=== PATIENT | male | born 1960 | race Caucasian/White ===

== ENCOUNTER 2020-02-29 11:10 | Outpatient (REF) | payer OTHER, SELFPAY ==
[2020-02-29 11:43] LABS: COVID-19 Test Negative (Negative)
== END 2020-02-29 11:11 | disposition home or self-care (01) ==
LOC: HO.LAB 11:10
PROVIDERS: PCP Internal Medicine; Visit Provider Internal Medicine
DX: Z20.828 Contact with and (suspected) exposure to other viral communicable diseases (principal)
CPT/HCPCS: 87635

== ENCOUNTER 2022-05-28 07:35 | Outpatient (REF) | payer OTHER, SELFPAY ==
[2022-05-28 07:44] VITALS: BMI 41.2
[2022-05-28 07:45] VITALS: BP 140/102; PULSE 90; RESP 16; TEMP 36.6; O2SAT 97
--- NOTE | 2022-05-28 08:27 | W.PM.OPN ---
Operative Note Operative Note Date of Service: 05/28/22 Narrative: Preoperative diagnosis: Prostate Cancer Postoperative diagnosis: Prostate Cancer Procedure: 1. transrectal ultrasound measurement of prostate 2. transrectal ultrasound-guided pudendal nerve block 3. transrectal ultrasound-guided prostate biopsy 12 core Surgeon: Dr. Sin Valencia Anesthetic: Local Indications for procedure: Prostate Cancer Procedure: After informed consent was verified, the patient was brought into the procedure area and lay left-hand side down on the table. Patient identity confirmed. Perioperative antibiotics confirmed. Safety pause time out performed. ANTIONETTE performed to dilate rectal sphincter Iodine 10cc with Gel was placed per rectum Ultrasound probe was placed per rectum The prostate was measured in 3 dimensions Total volume equals 65 gm No cystic structures were noted Extensive calcifications were noted at the surgical margin The prostate was otherwise heterogenous in nature An ultrasound-guided pudendal nerve block was performed using 10 cc of 1% lidocaine. 8 cc was placed at the base and 2 cc of the apex. A 12 core biopsy was performed with 6 cores each side. Two cores were taken at the apex, mid and base. Cores were spaced between lateral and medial. He tolerated the procedure well. Was able to ambulate to bathroom after 5 minutes. Printed instructions regarding antibiotic use and common side effects such as low-grade temperature, potential infection and bleeding were given Pathology: 12 core prostate biopsy.
[2022-05-28 08:30] VITALS: BP 162/98; PULSE 78; RESP 16; O2SAT 96
== END 2022-05-28 07:36 | disposition home or self-care (01) ==
LOC: HO.MS 07:35
PROVIDERS: PCP Internal Medicine; Visit Provider Urology
PROC: (CPT 55700; principal; 2022-05-28 08:00)
DX: C61 Malignant neoplasm of prostate (principal)
CPT/HCPCS: 55700; 76942; 88305; 88344

== ENCOUNTER → 2022-06-04 11:14 | Outpatient (BNVA) | payer OTHER, SELFPAY | PROVIDERS: PCP Internal Medicine; Visit Provider Urology | DX: C61 Malignant neoplasm of prostate (principal) ==

== ENCOUNTER → 2022-06-27 15:11 | Outpatient (BNVA) | payer OTHER, SELFPAY | PROVIDERS: PCP Internal Medicine; Visit Provider Urology | DX: Z13.89 Encounter for screening for other disorder (principal) ==

== ENCOUNTER 2023-01-07 12:57 | Outpatient (AMB) | payer OTHER, SELFPAY ==
--- NOTE | 2023-01-07 12:58 | A.OFFVIS_ITS ---
Intake Intake Visit Reasons: Follow up prior of MRI Intake Note: Patient is present for Telephone Follow prior of MRI that is scheduled for today at 2 Urology Med: Bicalutamide, Finasteride Antibiotic Allergy: None Blood Thinner: None Pharmacy: [facility] Allergies No Known Allergies Allergy (Verified 01/07/23 12:59) Medication List - Last Reconciled 01/07/23 by Sin Valencia MD bicalutamide 50 mg PO DAILY 90 days finasteride 5 mg PO DAILY 90 days hydrochlorothiazide 12.5 mg PO DAILY levofloxacin 500 mg PO ONCE 3 days losartan 100 mg PO DAILY HPI HPI Comments History of Present Illness Details Mr Cooper is a very pleasant male. He is a patient of Dr Garner. He is seen for the following urologic conditions. - Prostate Cancer - rising PSA postprostatectomy Telemedicine Evaluation 15 min Consultation [employer] Zoe Video attempted Undergoing PET-CT Restaging prior to salvage radiation Recommendation 18 months hormone therapy plus external beam radiation for persistent PSA Underwent robotic prostatectomy with Dr. Mike 08/08 PSA did not fully resolve Prostate Cancer : Low-grade prostate cancer initial therapy active surveillance 2008, repeat bx 2009, 2015 - Biopsy 06/10 multicore High grade Histologic type: Adenocarcinoma, acinar type [place] score: 4+5=9 (right base lateral and medial), 4+4=8 (right apex lateral, right mid lateral and medial), 4+3=7 (right apex medial, left mid medial), 3+4=7 (left base medial, left mid lateral) Number cores positive: 10 Total number of cores: 12 % of tissue involved: 35% of all tissue examined Periprostatic fat inv.: Very close Seminal vesicle inv.: Not identified Perineural inv.: Present LVI: Not identified Two prior biopsies 2008 and 2015 with low-grade low volume disease ? Diagnosis was reached by?01/2009 needle biopsy, for elevated PSA 4.1, Gl 3+3 05/30 cores - 12/2015 MRI-fusion biopsy 07/28 core Gl 3+3, all core < 30% The [place] grade is?1st. 3+3 = 6, At biopsy 05/30 2nd , 3+3 = 6 07/28 , right base, right mid gland ? TNM Classification of Malignant Tumours (TNM)?T1c.? The D'Oliver (NCCN) risk category is?Low Risk (PSA< 10, Gl < 7, T1c).? Initial therapy included?Primary treatment, Deferred Therapy (active surveillance) Repeat biopsy 01/26 no disease detected Repeat biopsy saturation 01/01 - 07/28 core < 25% [place] 3+3 Recent labs included?a PSA (prostate-specific antigen) 2008 4.1, March 2009 2.9, October 2010 2.3, 32,012 3.2, February 2013 3.1, 2014 2.9, October 2015 6.6, October 2016 5.2, 04/05 5.4, 06/07 6.2, 07/08 Genetics - [place] Rating 3.1 - left side active surveillance boundary, 01/07 13 Recent imaging included?an MRI (magnetic resonance imaging) 01/01 with 1cm lesion PiRads 3 - 04/09 MRI PI-RADS 5 - 2.4 cm lesion right posterior base. Abutment of right [place]. - 06/[address] - avid to prostate and right single node [facility] Medical History Prostate cancer Review of Systems Const All systems reviewed & are unremarkable except as noted in HPI and below Reports no additional complaints Resp Reports no additional complaints GI Reports no additional complaints Reports as per HPI Musc Reports no additional complaints Physical Exam Telemedicine evaluation Appropriate responses Regular breathing rate and rhythm HEENT Head: Yes normal to inspection Ears: hearing grossly normal bilaterally Eyes General: appearance normal, both eyes and all related structures Neck Neck: Yes normal visual inspection Chest Chest palpation & inspection: normal inspection of the chest Resp Effort & Inspection: normal respiratory effort and able to speak in complete sentences Assessment & Plan Assessment & Plan (1) Rising PSA following treatment for malignant neoplasm of prostate: Code(s): R97.21 - Rising PSA following treatment for malignant neoplasm of prostate Plan Radiation Oncology Referral GnRH planning Completing CT-PET Orders: Referrals Radiation Oncology Referral C61 - Malignant neoplasm of prostate Patient Instructions: Imaging studies, laboratory and physical exam results were discussed and reviewed in detail. No major barriers to patient understanding were identified. An opportunity to ask questions regarding the treatment plan was provided. All questions were answered. The patient expressed understanding and agreement with the above treatment plan. The patient is aware they should contact our office by phone for worsening of their current condition or the appearance of new urologic symptoms. Compliance is encouraged with any medications and followup testing that is ordered. It is a privilege to participate in the urologic care of your patient. If you h ave any questions or concerns regarding treatment for the above conditions, or other urologic issues, please do not hesitate to contact me. The office telephone contact is [phone]. This note is constructed using voice recognition software. While every effort has been made to ensure accuracy press machine feeder errors may have been included. Yours sincerely, Dr Sin Valencia MD, [facility] - Urology Providers of Expert, Compassionate Care for the Genitourinary System Telehealth Telehealth Location of provider rendering services: practice address Location of patient: address on file Patient Identification confirmed using: Name, : Yes Telehealth method: voice only Patient verbally consented to treatment: Yes Patient verbally consented to billing insurance company: Yes Patient informed of any privacy concerns related to visit: Yes Coding Level of Care Code Tele Est Pt Level 3 (50865) Diagnoses Rising PSA following treatment for malignant neoplasm of prostate R97.21
== END 2023-01-07 13:47 | disposition home or self-care (01) ==
LOC: HO.HUSH 12:57
PROVIDERS: PCP Internal Medicine; Visit Provider Urology
DX: R97.21 Rising PSA following treatment for malignant neoplasm of prostate (principal)
CPT/HCPCS: 99213

== ENCOUNTER → 2023-01-07 12:57 | Outpatient (BNVA) | payer OTHER, SELFPAY | PROVIDERS: PCP Internal Medicine; Visit Provider Urology ==

== ENCOUNTER 2023-01-21 13:53 | Outpatient (AMB) | payer OTHER, SELFPAY ==
--- NOTE | 2023-01-21 14:05 | A.OFFVIS_ITS ---
Intake Intake Visit Reasons: GNRH injection(No PA Needed) Intake Note: Patient is present for Follow Up/Eligard Injection Urology Med: Eligard (Q6M) Antibiotic Allergy: None Blood Thinner: None Pharmacy: [facility] Allergies No Known Allergies Allergy (Verified 01/21/23 14:08) HPI HPI Comments History of Present Illness Details Mr Cooper is a very pleasant male. He is a patient of Dr Garner. He is seen for the following urologic conditions. - Prostate Cancer - rising PSA postprostatectomy Here for GnRH injection Undergoing salvage radiation, PET-CT showed no evidence of disease except at prostate base Recommendation 18 months hormone therapy plus external beam radiation for persistent PSA May benefit from total androgen blockade given high risk features Discussed approaches to total androgen blockade which aims to block testicular and adrenal pathways Traditionally this has been achieved with combination GnRH, finasteride, bicalutamide Current trials using 2nd generation anti androgens still accruing data Combination GnRH, dutasteride and bicalutamide would likely provide 70-80% benef it compared to 2nd gen anti androgens Underwent robotic prostatectomy with Dr. Mike 08/08 PSA did not fully resolve Prostate Cancer : Low-grade prostate cancer initial therapy active surveillance 2008, repeat bx 2009, 2015 - Biopsy 06/10 multicore High grade Histologic type: Adenocarcinoma, acinar type [place] score: 4+5=9 (right base lateral and medial), 4+4=8 (right apex lateral, right mid lateral and medial), 4+3=7 (right apex medial, left mid medial), 3+4=7 (left base medial, left mid lateral) Number cores positive: 10 Total number of cores: 12 % of tissue involved: 35% of all tissue examined Periprostatic fat inv.: Very close Seminal vesicle inv.: Not identified Perineural inv.: Present LVI: Not identified Two prior biopsies 2008 and 2015 with low-grade low volume disease ? Diagnosis was reached by?01/2009 needle biopsy, for elevated PSA 4.1, Gl 3+3 05/30 cores - 12/2015 MRI-fusion biopsy 07/28 core Gl 3+3, all core < 30% The [place] grade is?1st. 3+3 = 6, At biopsy 05/30 2nd , 3+3 = 6 07/28 , right base, right mid gland ? TNM Classification of Malignant Tumours (TNM)?T1c.? The D'Oliver (NCCN) risk category is?Low Risk (PSA< 10, Gl < 7, T1c).? Initial therapy included?Primary treatment, Deferred Therapy (active surveillance) Repeat biopsy 01/26 no disease detected Repeat biopsy saturation 01/01 - 07/28 core < 25% [place] 3+3 Recent labs included?a PSA (prostate-specific antigen) 2008 4.1, March 2009 2.9, October 2010 2.3, 32,012 3.2, February 2013 3.1, 2014 2.9, October 2015 6.6, October 2016 5.2, 04/05 5.4, 06/07 6.2, 07/08 Genetics - Polaris Rating 3.1 - left side active surveillance boundary, 01/07 13 Recent imaging included?an MRI (magnetic resonance imaging) 01/01 with 1cm lesion PiRads 3 - 04/09 MRI PI-RADS 5 - 2.4 cm lesion right posterior base. Abutment of right [place]AN[place]. - 06/[address] - avid to prostate and right single node [facility] Medical History Prostate cancer Review of Systems Const Denies chills and Denies fever(s) Card Reports no additional complaints and Denies syncope Resp Denies cough GI Denies abdominal pain and Denies heartburn Reports as per HPI and Denies change in libido Neuro Denies syncope Psych Denies change in libido Endo Denies change in libido Physical Exam Const General: cooperative, healthy appearing, comfortable and no acute distress Orientation/consciousness: patient oriented x3 HEENT Face and sinus: Yes normal facial exam Mouth: moist mucous membranes Neck Neck: Yes normal visual inspection, Yes full ROM and Yes trachea midline Chest Chest palpation & inspection: normal inspection of the chest Resp Effort & Inspection: normal respiratory effort, able to speak in complete sentences and no respiratory distress GI Inspection: Yes normal to inspection Back/Spine/Pelvis Cervical Spine: normal cervical lordosis Thoracic/Lumbar Spine: thoracic and lumbar spine normal to inspection Skin General skin exam: no rashes or lesions noted Neuro General: patient oriented x3, gait normal, tone normal and moves all extremities Extrem General: Yes normal to inspection and Yes capillary refill normal Office [facility] (6 month) Performing Provider: Sin Valencia MD Administered by: Kellee Masters RN on 01/21/23 14:30 Dose Route Admin Location Lot Number Expiration Date NDC [employer] 45 mg subcut right arm [id number] 05/19/24 27882-637-09 [employer]. Assessment & Plan Assessment & Plan (1) Prostate cancer: Comment: Low Volume, Low Grade 2008,2009,2016 High Volume, High Grade 2021 Code(s): C61 - Malignant neoplasm of prostate (2) Rising PSA following treatment for malignant neoplasm of prostate: Code(s): R97.21 - Rising PSA following treatment for malignant neoplasm of prostate Plan Three month follow-up PSA Orders: Orders Prostate Specific Antigen 3 Months R97.21 - Rising PSA following treatment for malignant neoplasm of prostate AMB Leuprolide Injection - Practice Supplied Today C61 - Malignant neoplasm of prostate Patient Instructions: Imaging studies, laboratory and physical exam results were discussed and reviewed in detail. No major barriers to patient understanding were identified. An opportunity to ask questions regarding the treatment plan was provided. All questions were answered. The patient expressed understanding and agreement with the above treatment plan. The patient is aware they should contact our office by phone for worsening of their current condition or the appearance of new urologic symptoms. Compliance is encouraged with any medications and followup testing that is ordered. It is a privilege to participate in the urologic care of your patient. If you have any questions or concerns regarding treatment for the above conditions, or other urologic issues, please do not hesitate to contact me. The office telephone contact is [phone]. This note is constructed using voice recognition software. While every effort has been made to ensure accuracy manager finance errors may have been included. Yours sincerely, Dr Sin Valencia MD, [facility] - Urology Providers of Expert, Compassionate Care for the Genitourinary System Coding Level of Care Code Est Pt Level 4 (76569) Diagnoses Prostate cancer C61 Rising PSA following treatment for malignant neoplasm of prostate R97.21
== END 2023-01-21 15:05 | disposition home or self-care (01) ==
PROVIDERS: PCP Internal Medicine; Visit Provider Urology
DX: C61 Malignant neoplasm of prostate (principal); R97.21 Rising PSA following treatment for malignant neoplasm of prostate
CPT/HCPCS: 99213

== ENCOUNTER → 2023-01-21 13:53 | Outpatient (BNVA) | payer OTHER, SELFPAY | PROVIDERS: PCP Internal Medicine; Visit Provider Urology | DX: C61 Malignant neoplasm of prostate (principal); R97.21 Rising PSA following treatment for malignant neoplasm of prostate | CPT/HCPCS: 96402; J9217 ==

== ENCOUNTER 2023-05-01 09:58 | Outpatient (AMB) | payer OTHER, SELFPAY ==
--- NOTE | 2023-05-01 09:58 | A.OFFVIS_ITS ---
Intake Intake Visit Reasons: 3M Radiation Follow Up Intake Note: Patient is Present for Telephone Follow Up Urology Med: Bicalutamide, Dutasteride, Eligard(Q6M) Antibiotic Allergy: None Blood Thinner: None Allergies No Known Allergies Allergy (Verified 05/01/23 10:02) Medication List - Last Reconciled 05/01/23 by Sin Valencia MD bicalutamide 50 mg PO DAILY 90 days dutasteride 0.5 mg PO DAILY 90 days hydrochlorothiazide 12.5 mg PO DAILY leuprolide acetate (6 month) (Eligard) 45 mg subcut [id number] levofloxacin 500 mg PO ONCE 3 days losartan 100 mg PO DAILY HPI HPI Comments History of Present Illness Details Mr Cooper is a very pleasant male. He is a patient of Dr Garner. He is seen for the following urologic conditions. - Prostate Cancer - rising PSA postprostatectomy Telemedicine Evaluation 15 min Consultation [employer] Zoe Video attempted Completed salvage radiation last week Has some degree of urinary urgency Controllable otherwise thinks the whole process went off fairly well. Will stop bicalutamide Continue dutasteride Review in July with labs and GnRH GnRH 01/21/23 - Salvage Radiation Underwent robotic prostatectomy with Dr. Mike 08/08 PSA did not fully resolve Prostate Cancer : Low-grade prostate cancer initial therapy active surveillance 2008, repeat bx 2009, 2015 - Biopsy 06/10 multicore High grade Histologic type: Adenocarcinoma, acinar type [place] score: 4+5=9 (right base lateral and medial), 4+4=8 (right apex lateral, right mid lateral and medial), 4+3=7 (right apex medial, left mid medial), 3+4=7 (left base medial, left mid lateral) Number cores positive: 10 Total number of cores: 12 % of tissue involved: 35% of all tissue examined Periprostatic fat inv.: Very close Seminal vesicle inv.: Not identified Perineural inv.: Present LVI: Not identified Two prior biopsies 2008 and 2015 with low-grade low volume disease ? Diagnosis was reached by?01/2009 needle biopsy, for elevated PSA 4.1, Gl 3+3 05/30 cores - 12/2015 MRI-fusion biopsy 07/28 core Gl 3+3, all core < 30% The [place] grade is?1st. 3+3 = 6, At biopsy 1/12 2nd , 3+3 = 6 07/28 , right base, right m id gland ? TNM Classification of Malignant Tumours (TNM)?T1c.? The D'Oliver (NCCN) risk category is?Low Risk (PSA< 10, Gl < 7, T1c).? Initial therapy included?Primary treatment, Deferred Therapy (active surveillance) Repeat biopsy 01/26 no disease detected Repeat biopsy saturation 01/01 - 07/28 core < 25% [place] 3+3 Recent labs included?a PSA (prostate-specific antigen) 2008 4.1, March 2009 2.9, October 2010 2.3, 32,012 3.2, February 2013 3.1, 2014 2.9, October 2015 6.6, October 2016 5.2, 04/05 5.4, 06/07 6.2, 07/08 Genetics - Polaris Ra ting 3.1 - left side active surveillance boundary, 01/07 13 Recent imaging included?an MRI (magnetic resonance imaging) 01/01 with 1cm lesion PiRads 3 - 04/09 MRI PI-RADS 5 - 2.4 cm lesion ri ght posterior base. Abutment of right KANNAN. - 06/[address] - avid to prostate and rig ht single node PFSH Medical History Prostate cancer Review of Systems Const All systems reviewed & are unremarkable except as noted in HPI and below Reports no additional complaints Resp Reports no additional complaints GI Reports no additional complaints Reports as per HPI Musc Reports no additional complaints Physical Exam Telemedicine evaluation Appropriate responses Regular breathing rate and rhythm HEENT Head: Yes normal to inspection Ears: hearing grossly normal bilaterally Eyes General: appearance normal, both eyes and all related structures Neck Neck: Yes normal visual inspection Chest Chest palpation & inspection: normal inspection of the chest Resp Effort & Inspection: normal respiratory effort and able to speak in complete sentences Assessment & Plan Assessment & Plan (1) Biochemically recurrent castration-sensitive adenocarcinoma of prostate: Code(s): C61 - Malignant neoplasm of prostate; R97.21 - Rising PSA following treatment for malignant neoplasm of prostate; Z19.1 - Hormone sensitive malignancy status Plan Three month follow-up labs and GnRH Orders: Orders Prostate Specific Antigen 3 Months C61 - Malignant neoplasm of prostate Testosterone, Total 3 Months C61 - Malignant neoplasm of prostate Patient Instructions: Imaging studies, laboratory and physical exam results were discussed and reviewed in detail. No major barriers to patient understanding were identified. An opportunity to ask questions regarding the treatment plan was provided. All questions were answered. The patient expressed understanding and agreement with the above treatment plan. The patient is aware they should contact our office by phone for worsening of their current condition or the appearance of new urologic symptoms. Compliance is encouraged with any medications and followup testing that is ordered. It is a privilege to participate in the urologic care of your patient. If you have any questions or concerns regarding treatment for the above conditions, or other urologic issues, please do not hesitate to contact me. The office telephone contact is [phone]. This note is constructed using voice recognition software. While every effort has been made to ensure accuracy retail department reset errors may have been included. Yours sincerely, Dr Sin Valencia MD, [facility] - Urology Providers of Expert, Compassionate Care for the Genitourinary System Telehealth Telehealth Location of provider rendering services: practice address Location of patient: address on file Patient Identification confirmed using: Name, : Yes Telehealth method: video Patient verbally consented to treatment: Yes Patient verbally consented to billing insurance company: Yes Patient informed of any privacy concerns related to visit: Yes Coding Level of Care Code Tele Est Pt Level 3 (79036) Diagnoses Biochemically recurrent castration-sensitive adenocarcinoma of prostate C61; R97.21; Z19.1
== END 2023-05-01 11:38 | disposition home or self-care (01) ==
LOC: HO.HUSH 09:58
PROVIDERS: PCP Internal Medicine; Visit Provider Urology
DX: C61 Malignant neoplasm of prostate (principal); R97.21 Rising PSA following treatment for malignant neoplasm of prostate; Z19.1 Hormone sensitive malignancy status
CPT/HCPCS: 99213

== ENCOUNTER → 2023-05-01 09:58 | Outpatient (BNVA) | payer OTHER, SELFPAY | PROVIDERS: PCP Internal Medicine; Visit Provider Urology ==

== ENCOUNTER 2023-07-31 10:57 | Outpatient (AMB) | payer OTHER, SELFPAY ==
--- NOTE | 2023-07-31 11:10 | A.OFFVIS_ITS ---
Intake Intake Visit Reasons: 3M GnRH/Labs(set)Portal Confirm Intake Note: Patient presents today for a follow-up on Labs/ [place] LAWS Meds- DutasterideKenyon Allergies to Antibiotic- No Known Allergies Blood Thinner- None Portfolio Management Marketing Required: No Accompanied by: Allergies No Known Allergies Allergy (Verified 07/31/23 11:13) HPI HPI Comments History of Present Illness Details Mr Cooper is a very pleasant male. He is a patient of Dr Garner. He is seen for the following urologic conditions. - Prostate Cancer - rising PSA postprostatectomy Discussed laboratory findings Emphasized need to complete series of GnRH injections Has had minor hot flashes and weight gain secondary to hormonal side effects 08/09 PSA <0.1, T 3 GnRH 01/21/23 - Salvage Radiation Underwent robotic prostatectomy with Dr. Mike 08/08 PSA did not fully resolve Prostate Cancer : Low-grade prostate cancer initial therapy active surveillance 2008, repeat bx 2009, 2015 - Biopsy 06/10 multicore High grade Histologic type: Adenocarcinoma, acinar type Monserrat score: 4+5=9 (right base lateral and medial), 4+4=8 (right apex lateral, right mid lateral and medial), 4+3=7 (right apex medial, left mid medial), 3+4=7 (left base medial, left mid lateral) Number cores positive: 10 Total number of cores: 12 % of tissue involved: 35% of all tissue examined Periprostatic fat inv.: Very close Seminal vesicle inv.: Not identified Perineural inv.: Present LVI: Not identified Two prior biopsies 2008 and 2015 with low-grade low volume disease ? Diagnosis was reached by?01/2009 needle biopsy, for elevated PSA 4.1, Gl 3+3 05/30 cores - 12/2015 MRI-fusion biopsy 07/28 core Gl 3+3, all core < 30% The [place] grade is?1st. 3+3 = 6, At biopsy 05/30 2nd , 3+3 = 6 07/28 , right base, right m id gland ? TNM Classification of Malignant Tumours (TNM)?T1c.? The D'Oliver (NCCN) risk category is?Low Risk (PSA< 10, Gl < 7, T1c).? Initial therapy included?Primary treatment, Deferred Therapy (active surveillance) Repeat biopsy 01/26 no disease detected Repeat biopsy saturation 01/01 - 07/28 core < 25% [place] 3+3 Recent labs included?a PSA (prostate-specific antigen) 2008 4.1, March 2009 2.9, October 2010 2.3, 32,012 3.2, February 2013 3.1, 2014 2.9, October 2015 6.6, October 2016 5.2, 04/05 5.4, 06/07 6.2, 07/08 Genetics - Polaris Rating 3.1 - left side active surveillance boundary, 01/07 13 Recent imaging included?an MRI (magnetic resonance imaging) 01/01 with 1cm lesion PiRads 3 - 04/09 MRI PI-RADS 5 - 2.4 cm lesion ri ght posterior base. Abutment of right KANNAN. - 06/[address] - avid to prostate and rig ht single node PFSH Medical History Prostate cancer Review of Systems Const Denies chills and Denies fever(s) Card Reports no additional complaints and Denies syncope Resp Denies cough GI Denies abdominal pain and Denies heartburn Reports as per HPI and Denies change in libido Neuro Denies syncope Psych Denies change in libido Endo Denies change in libido Physical Exam Const General: cooperative, healthy appearing, comfortable and no acute distress Orientation/consciousness: patient oriented x3 HEENT Face and sinus: Yes normal facial exam Mouth: moist mucous membranes Neck Neck: Yes normal visual inspection, Yes full ROM and Yes trachea midline Chest Chest palpation & inspection: normal inspection of the chest Resp Effort & Inspection: normal respiratory effort, able to speak in complete sentences and no respiratory distress GI Inspection: Yes normal to inspection Back/Spine/Pelvis Cervical Spine: normal cervical lordosis Thoracic/Lumbar Spine: thoracic and lumbar spine normal to inspection Skin General skin exam: no rashes or lesions noted Neuro General: patient oriented x3, gait normal, tone normal and moves all extremities Extrem General: Yes normal to inspection and Yes capillary refill normal Office Meds Eligard (6 month) 45 mg (6 month) subcutaneous syringe Performing Provider: Sin Valencia MD [facility] Administered by: Kellee Dewitt RN on 07/31/23 11:46 Dose Route Admin Location Dispensed Lot Number Expiration Date [place] Service Clerk 45 mg subcut left arm 45 mg [id number] 07/16/24 58386-085-41 [employer]. Assessment & Plan Assessment & Plan (1) Prostate cancer: Comment: Low Volume, Low Grade 2008,2009,2015 High Volume, High Grade 2021 Code(s): C61 - Malignant neoplasm of prostate (2) Biochemically recurrent castration-sensitive adenocarcinoma of prostate: Code(s): C61 - Malignant neoplasm of prostate; R97.21 - Rising PSA following treatment for malignant neoplasm of prostate; Z19.1 - Hormone sensitive malignancy status Plan Three-month follow-up lab work tele Orders: Orders Testosterone, Total 3 Months C61 - Malignant neoplasm of prostate, R97.21 - Rising PSA following treatment for malignant neoplasm of prostate, Z19.1 - Hormone sensitive malignancy status AMB Leuprolide Injection - Practice Supplied Today C61 - Malignant neoplasm of prostate Prostate Specific Antigen 3 Months C61 - Malignant neoplasm of prostate, R97.21 - Rising PSA following treatment for malignant neoplasm of prostate, Z19.1 - Hormone sensitive malignancy status Patient Instructions: Imaging studies, laboratory and physical exam results were discussed and reviewed in detail. No major barriers to patient understanding were identified. An opportunity to ask questions regarding the treatment plan was provided. All questions were answered. The patient expressed understanding and agreement with the above treatment plan. The patient is aware they should contact our office by phone for worsening of their current condition or the appearance of new urologic symptoms. Compliance is encouraged with any medications and followup testing that is ordered. It is a privilege to participate in the urologic care of your patient. If you have any questions or concerns regarding treatment for the above conditions, or other urologic issues, please do not hesitate to contact me. The office telephone contact is [phone]. This note is constructed using voice recognition software. While every effort has been made to ensure accuracy corrugator operator helper errors may have been included. Yours sincerely, Dr Sin Valencia MD, MIR[facility] - Urology Providers of Expert, Compassionate Care for the Genitourinary System Coding Level of Care Code Est Pt Level 4 (33053) Diagnoses Prostate cancer C61 Biochemically recurrent castration-sensitive adenocarcinoma of prostate C61; R97.21; Z19.1
== END 2023-07-31 11:54 | disposition home or self-care (01) ==
PROVIDERS: PCP Internal Medicine; Visit Provider Urology
DX: C61 Malignant neoplasm of prostate (principal); R97.21 Rising PSA following treatment for malignant neoplasm of prostate; Z19.1 Hormone sensitive malignancy status
CPT/HCPCS: 99214

== ENCOUNTER → 2023-07-31 10:57 | Outpatient (BNVA) | payer OTHER, SELFPAY | PROVIDERS: PCP Internal Medicine; Visit Provider Urology | DX: C61 Malignant neoplasm of prostate (principal); R97.21 Rising PSA following treatment for malignant neoplasm of prostate; Z19.1 Hormone sensitive malignancy status | CPT/HCPCS: 96402; J9217 ==

== ENCOUNTER 2023-10-31 13:28 | Outpatient (AMB) | payer OTHER, SELFPAY ==
--- NOTE | 2023-10-31 13:30 | A.OFFVIS_ITS ---
Intake Visit Reasons: 3M PSA/Testo(set) Intake Note: Patient is Present for Telephone Follow Up labs Urology Med:Dutasteride Antibiotic Allergy: None Blood Thinner:None Allergies No Known Allergies Allergy (Verified 07/31/23 11:13) Medication List - Last Reconciled 10/31/23 by Sin Valencia MD dutasteride 0.5 mg PO DAILY 90 days hydrochlorothiazide 12.5 mg PO DAILY leuprolide acetate (6 month) (Eligard) 45 mg subcut [id number] losartan 100 mg PO DAILY HPI Comments Details: Mr Cooper is a very pleasant male. He is a patient of Dr Garner. He is seen for the following urologic conditions. - Prostate Cancer - rising PSA postprostatectomy Telemedicine Evaluation 15 min Consultation DoximHItviews Zoe Video attempted Doing well Main side effect weight gain Has follow-up with PCP for low white count 11/09 <0.1 T 4 08/09 PSA <0.1, T 3 GnRH 01/21/23 - Salvage Radiation GnRH 08/[address] Mike PSA did not fully resolve Prostate Cancer : Low-grade prostate cancer initial therapy active surveillance 2008, repeat bx 2009, 2015 - Biopsy 06/10 multicore High grade Histologic type: Adenocarcinoma, acinar type Colbert score: 4+5=9 (right base lateral and medial), 4+4=8 (right apex lateral, right mid lateral and medial), 4+3=7 (right apex medial, left mid medial), 3+4=7 (left base medial, left mid lateral) Number cores positive: 10 Total number of cores: 12 % of tissue involved: 35% of all tissue examined Periprostatic fat inv.: Very close Seminal vesicle inv.: Not identified Perineural inv.: Present LVI: Not identified Two prior biopsies 2008 and 2015 with low-grade low volume disease ? Diagnosis was reached by?01/2009 needle biopsy, for elevated PSA 4.1, Gl 3+3 05/30 cores - 12/2015 MRI-fusion biopsy 07/28 core Gl 3+3, all core < 30% The Monserrat grade is?1st. 3+3 = 6, At biopsy 05/30 2nd , 3+3 = 6 07/28 , right base, right mid gland ? TNM Classification of Malignant Tumours (TNM)?T1c.? The D'Oliver (NCCN) risk category is?Low Risk (PSA< 10, Gl < 7, T1c).? Initial therapy included?Primary treatment, Deferred Therapy (active surveillance) Repeat biopsy 01/26 no disease detected Repeat biopsy saturation 01/01 - 07/28 core < 25% [place] 3+3 Recent labs included?a PSA (prostate-specific antigen) 2008 4.1, March 2009 2.9, October 2010 2.3, ,012 3.2, February 2013 3.1, 2014 2.9, October 2015 6.6, October 2016 5.2, 04/05 5.4, 06/07 6.2, 07/08 Genetics - Polaris Rating 3.1 - left side active surveillance boundary, 01/07 13 Recent imaging included?an MRI (magnetic resonance imaging) 01/01 with 1cm lesion PiRads 3 - 04/09 MRI PI-RADS 5 - 2.4 cm lesion right posterior base. Abutment of right [place]. - 06/[address] - avid to prostate and right single node [facility] Medical History Prostate cancer Review of Systems Const All systems reviewed & are unremarkable except as noted in HPI and below Reports no additional complaints Resp Reports no additional complaints GI Reports no additional complaints Reports as per HPI Musc Reports no additional complaints Physical Exam Telemedicine evaluation Appropriate responses Regular breathing rate and rhythm HEENT Head: Yes normal to inspection Ears: hearing grossly normal bilaterally Eyes General: appearance normal, both eyes and all related structures Neck Neck: Yes normal visual inspection Chest Chest palpation & inspection: normal inspection of the chest Resp Effort & Inspection: normal respiratory effort and able to speak in complete sentences Telehealth Telehealth Telehealth Platform: [facility] Location of provider rendering services: practice address Location of patient: address on file Patient Identification confirmed using: Name, : Yes Telehealth method: video Patient verbally consented to treatment: Yes Patient verbally consented to billing insurance company: Yes Patient informed of any privacy concerns related to visit: Yes Minutes spent on Phone/Video with Pt.: 15 Assessment & Plan Assessment & Plan (1) Osteopenia due to cancer therapy: Code(s): M85.80 - Other specified disorders of bone density and structure, unspecified site Category: Medical (2) Prostate cancer: Comment: Low Volume, Low Grade 2008,2009,2015 High Volume, High Grade 2021 Code(s): C61 - Malignant neoplasm of prostate Category: Medical Plan Check DEXA scan Check lab 3 months GnRH three-month Orders: Orders XR DEXA axial skeleton 3 Months M85.80 - Other specified disorders of bone density and structure, unspecified site Prostate Specific Antigen 3 Months M85.80 - Other specified disorders of bone density and structure, unspecified site Testosterone, Total 3 Months M85.80 - Other specified disorders of bone density and structure, unspecified site Patient Instructions: Imaging studies, laboratory and physical exam results were discussed and reviewed in detail. No major barriers to patient understanding were identified. An opportunity to ask questions regarding the treatment plan was provided. All questions were answered. The patient expressed understanding and agreement with the above treatment plan. The patient is aware they should contact our office by phone for worsening of their current condition or the appearance of new urologic symptoms. Compliance is encouraged with any medications and followup testing that is ordered. It is a privilege to participate in the urologic care of your patient. If you have any questions or concerns regarding treatment for the above conditions, or other urologic issues, please do not hesitate to contact me. The office telephone contact is [phone]. This note is constructed using voice recognition software. While every effort has been made to ensure accuracy insurance adjuster errors may have been included. Yours sincerely, Dr Sin Valencia MD, M[facility] - Urology Providers of Expert, Compassionate Care for the Genitourinary System Coding Level of Care Code Tele Est Pt Level 3 (69117) Diagnoses Osteopenia due to cancer therapy M85.80 Prostate cancer C61
== END 2023-10-31 14:14 | disposition home or self-care (01) ==
LOC: HO.HUSH 13:28
PROVIDERS: PCP Internal Medicine; Visit Provider Urology
DX: M85.80 Other specified disorders of bone density and structure, unspecified site (principal); C61 Malignant neoplasm of prostate
CPT/HCPCS: 99213

== ENCOUNTER → 2023-10-31 13:28 | Outpatient (BNVA) | payer OTHER, SELFPAY | PROVIDERS: PCP Internal Medicine; Visit Provider Urology ==

== ENCOUNTER 2023-11-06 08:03 | Outpatient (REF) | payer OTHER, SELFPAY ==
--- NOTE | ~2023-11-06 | MM_ITS ---
EXAMINATION: BONE DENSITOMETRY CLINICAL INDICATION: Other specified disorders of bone density and structure, unspecified site. COMPARISON: This is the patient's baseline examination. TECHNIQUE: Using a MyEnergy DXA System (software version: 13.1) manufactured by [employer], dual-energy x-ray absorptiometry was performed of the lumbar spine and left hip. The images are of good technical quality. Summary results are attached. FINDINGS: AP SPINE L1-L4 (excluding L2 and L3): The data of L1-L4 has been changed to exclude the L2 and L3 vertebral bodies, because degenerative sclerosis at these levels may cause overestimation of lumbar spine density. BMD 1.142 g/cm2, Z-score -0.7, T-score -0.5, normal. LEFT FEMUR, NECK: BMD 1.125 g/cm2, Z-score 1.0, T-score 0.4, normal. LEFT FEMUR, TOTAL: BMD 1.202 g/cm2, Z-score 0.8, T-score 0.7, normal. IDENTIFIED RISK FACTORS: Secondary osteoporosis (hypogonadism). HISTORY OF FRACTURE: None listed. MEDICATIONS: Calcium supplement and/or multivitamin. MM/XR DEXA axial skeleton IMPRESSION: 1. DIAGNOSIS: Normal bone density based on the lowest T-score value of -0.5 in the lumbar spine applying World Health Organization criteria. 2. 10-YEAR FRACTURE RISK PREDICTION, FRAX: According to the guidelines, FRAX calculation should only be performed on patients in the osteopenia bone density category.?Therefore, FRAX was not performed on this patient.? 3. Treatment Recommendations: NOF guidelines recommend consideration for treatment in postmenopausal women and men age 50 and older presenting with the following: -A hip or vertebral (clinical or morphometric) fracture. -T-score less than or equal to -2.5 at the femoral neck or spine after appropriate evaluation to exclude secondary causes. -Low bone mass at the hip or spine and a 10-year fracture probability by FRAX of greater than or equal to 3% for hip fracture or greater than or equal to 20% for major osteoporotic fracture based on the [place] adapted WHO algorithm. 4. Other Recommendations: All treatment decisions require clinical judgment and consideration of individual patient factors, including patient preferences, comorbidities, previous drug use, risk factors not captured in the FRAX model (e.g. frailty, falls, vitamin D deficiency, increased bone turnover, interval significant decline in bone density) and possible under or overestimation of fracture risk by FRAX. FUTURE SCAN RECOMMENDATION: People with diagnosed cases of osteoporosis or at high risk for fracture should have regular bone mineral density tests. For patients eligible for Medicare, routine testing is allowed once every 2 years. The testing frequency can be increased to one year for patients who have rapidly progressing disease, those who are receiving or discontinuing medical therapy to restore bone mass, or have additional risk factors.
== END 2023-11-06 08:04 | disposition home or self-care (01) ==
LOC: HO.MAMMO 08:03
PROVIDERS: PCP Internal Medicine; Visit Provider Urology
DX: Z13.820 Encounter for screening for osteoporosis (principal); M85.80 Other specified disorders of bone density and structure, unspecified site
CPT/HCPCS: 77080

== ENCOUNTER 2024-01-30 09:25 | Outpatient (AMB) | payer OTHER, SELFPAY ==
--- NOTE | 2024-01-30 09:32 | A.OFFVIS_ITS ---
Intake Visit Reasons: GnRH/labs/DEXA(pa set) Intake Note: Patient is present for GNH/LABS/DEXA Urology Medication:DUTASTERIDE Antibiotic Allergy:NONE Blood Thinner:NONE Musculoskeletal Physiotherapist Required: No Allergies No Known Allergies Allergy (Verified 01/30/24 09:34) HPI Comments Details: Mr Cooper is a very pleasant male. He is a patient of Dr Garner. He is seen for the following urologic conditions. - Prostate Cancer - rising PSA postprostatectomy Doing well Main side effect weight gain No hot flashes Has been working on RaySat from Last GnRH given today Will follow lab work 02/09 <0.1, T 3 GnRH 11/09 <0.1 T 4 08/09 PSA <0.1, T 3 GnRH 01/21/23 - Salvage Radiation GnRH for 18 months 08/[address] Mike PSA did not fully resolve Prostate Cancer : Low-grade prostate cancer initial therapy active surveillance 2008, repeat bx 2009, 2015 - Biopsy 06/10 multicore High grade Histologic type: Adenocarcinoma, acinar type Monserrat score: 4+5=9 (right base lateral and medial), 4+4=8 (right apex lateral, right mid lateral and medial), 4+3=7 (right apex medial, left mid medial), 3+4=7 (left base medial, left mid lateral) Number cores positive: 10 Total number of cores: 12 % of tissue involved: 35% of all tissue examined Periprostatic fat inv.: Very close Seminal vesicle inv.: Not identified Perineural inv.: Present LVI: Not identified Two prior biopsies 2008 and 2015 with low-grade low volume disease ? Diagnosis was reached by?01/2009 needle biopsy, for elevated PSA 4.1, Gl 3+3 05/30 cores - 12/2015 MRI-fusion biopsy 07/28 core Gl 3+3, all core < 30% The [place] grade is?1st. 3+3 = 6, At biopsy 05/30 2nd , 3+3 = 6 07/28 , right base, right mid gland ? TNM Classification of Malignant Tumours (TNM)?T1c.? The D'Oliver (NCCN) risk category is?Low Risk (PSA< 10, Gl < 7, T1c).? Initial therapy included?Primary treatment, Deferred Therapy (active surveillance) Repeat biopsy 01/26 no disease detected Repeat biopsy saturation 01/01 - 07/28 core < 25% [place] 3+3 Recent labs included?a PSA (prostate-specific antigen) 2008 4.1, March 2009 2.9, October 2010 2.3, 32,012 3.2, February 2013 3.1, 2014 2.9, October 2015 6.6, October 2016 5.2, 04/05 5.4, 06/07 6.2, 07/08 Genetics - Polaris Rating 3.1 - left side active surveillance boundary, 01/07 13 Recent imaging included?an MRI (magnetic resonance imaging) 01/01 with 1cm lesion PiRads 3 - 04/09 MRI PI-RADS 5 - 2.4 cm lesion right posterior base. Abutment of right KANNAN. - 06/[address] - avid to prostate and right single node [facility] Medical History Prostate cancer Review of Systems Const Denies chills and Denies fever(s) Card Reports no additional complaints and Denies syncope Resp Denies cough GI Denies abdominal pain and Denies heartburn Reports as per HPI and Denies change in libido Neuro Denies syncope Psych Denies change in libido Endo Denies change in libido Physical Exam Const General: cooperative, healthy appearing, comfortable and no acute distress Orientation/consciousness: patient oriented x3 HEENT Face and sinus: Yes normal facial exam Mouth: moist mucous membranes Neck Neck: Yes normal visual inspection, Yes full ROM and Yes trachea midline Chest Chest palpation & inspection: normal inspection of the chest Resp Effort & Inspection: normal respiratory effort, able to speak in complete sentences and no respiratory distress GI Inspection: Yes normal to inspection Back/Spine/Pelvis Cervical Spine: normal cervical lordosis Thoracic/Lumbar Spine: thoracic and lumbar spine normal to inspection Skin General skin exam: no rashes or lesions noted Neuro General: patient oriented x3, gait normal, tone normal and moves all extremities Extrem General: Yes normal to inspection and Yes capillary refill normal Office Procedures Post Void Residual Post Residual Void Post Void Residual (PVR): 0 02864-Upef Void Residual by ultrasound Office Meds Eligard (6 month) 45 mg (6 month) subcutaneous syringe Performing Provider: Sin Valencia MD Performing Location: [facility] [place] [facility] Administered by: Balaji Hernandez LPN on 01/30/24 10:24 Dose Route Admin Location Dispensed Lot Number Expiration Date NDC Offbearer Sewer Pipe 45 mg subcut right arm 45 mg [id number] 11/16/24 70542-086-73 [employer]. Results AMB Urinalysis, Automated UA Leukoctes Cancelled Frantz/uL Last Edit by ALMA Kaur on 01/30/24 09:40 UA Leukoctes previously reported as 0 Cathy Downs 01/30/24 09:40 UA Nitrite Cancelled Last Edit by ALMA Kaur on 01/30/24 09:40 UA Nitrite previously reported as Negative Cathy Downs 01/30/24 09:40 UA Urobilinogen Cancelled mg/dL Last Edit by ALMA Kaur on 4 09:40 UA Urobilinogen previously reported as 0.2 Cathy Downs 01/30/24 09:40 UA Protein Cancelled mg/dL Last Edit by ALMA Kaur on 01/30/24 09: 40 UA Protein previously reported as 30 Cathy Downs 01/30/24 09:40 UA pH Cancelled Last Edit by ALMA Kaur on 01/30/24 09:40 UA pH previously reported as 6.0 Cathy Downs 01/30/24 09:40 UA Blood Cancelled Van/uL Last Edit by ALMA Kaur on 01/30/24 09:4 0 UA Blood previously reported as 0 Cathy Downs 01/30/24 09:40 UA Specific [place] Cancelled Last Edit by ALMA Kaur on 01/30/24 09:40 UA Specific [place] previously reported as 1.020 Cathy Downs 01/30/24 09:40 UA Ketone Cancelled Last Edit by ALMA Kaur on 01/30/24 09:40 UA Ketone previously reported as Positive Cathy Downs 01/30/24 09:40 UA Bilirubin Cancelled mg/dL Last Edit by ALMA Kaur on 01/30/24 0 9:4 0 UA Bilirubin previously reported as 1 Cathy Downs 01/30/24 09:40 UA Glucose Cancelled mg/dL Last Edit by ALMA Kaur on 01/30/24 09: 40 UA Glucose previously reported as 0 Cathy Downs 01/30/24 09:40 CANCELLED ANTHONY PT Results Reviewed Results Reviewed: Laboratory Last Values Urine pH (Auto) Cancelled 01/30/24 09:37 Specific [place] (Auto) Cancelled 01/30/24 09:37 Urine Protein (Auto) Cancelled 01/30/24 09:37 Glucose (UA)(Auto) Cancelled 01/30/24 09:37 Urine Ketones (Auto) Cancelled 01/30/24 09:37 Urine Blood (Auto) Cancelled 01/30/24 09:37 Urine Nitrite (Auto) Cancelled 01/30/24 09:37 Urine Bilirubin (Auto) Cancelled 01/30/24 09:37 Urine Urobilinogen (Auto) Cancelled 01/30/24 09:37 Leukocyte Esterase (Auto) Cancelled 01/30/24 09:37 Assessment & Plan Assessment & Plan (1) Osteopenia due to cancer therapy: Code(s): M85.80 - Other specified disorders of bone density and structure, unspecified site Category: Medical (2) Prostate cancer: Comment: Low Volume, Low Grade 2008,2009,2016 High Volume, High Grade 2021 Code(s): C61 - Malignant neoplasm of prostate Category: Medical (3) Rising PSA following treatment for malignant neoplasm of prostate: Code(s): R97.21 - Rising PSA following treatment for malignant neoplasm of prostate Category: Medical (4) Biochemically recurrent castration-sensitive adenocarcinoma of prostate: Code(s): C61 - Malignant neoplasm of prostate; R97.21 - Rising PSA following treatment for malignant neoplasm of prostate; Z19.1 - Hormone sensitive malignancy status Category: Medical Plan Three-month follow-up lab work tele Orders: Orders Prostate Specific Antigen 3 Months C61 - Malignant neoplasm of prostate Testosterone, Total 3 Months C61 - Malignant neoplasm of prostate AMB Leuprolide Injection - Practice Supplied 01/30/24 C61 - Malignant neoplasm of prostate, R97.21 - Rising PSA following treatment for malignant neoplasm of prostate Patient Instructions: Imaging studies, laboratory and physical exam results were discussed and reviewed in detail. No major barriers to patient understanding were identified. An opportunity to ask questions regarding the treatment plan was provided. All questions were answered. The patient expressed understanding and agreement with the above treatment plan. The patient is aware they should contact our office by phone for worsening of their current condition or the appearance of new urologic symptoms. Compliance is encouraged with any medications and followup testing that is ordered. It is a privilege to participate in the urologic care of your patient. If you have any questions or concerns regarding treatment for the above conditions, or other urologic issues, please do not hesitate to contact me. The office telephone contact is [phone]. This note is constructed using voice recognition software. While every effort has been made to ensure accuracy utility porter errors may have been included. Yours sincerely, Dr Sin Valencia MD, [facility] - Urology Providers of Expert, Compassionate Care for the Genitourinary System Coding Level of Care Code Est Pt Level 3 (33130) Diagnoses Osteopenia due to cancer therapy M85.80 Prostate cancer C61 Rising PSA following treatment for malignant neoplasm of prostate R97.21 Biochemically recurrent castration-sensitive adenocarcinoma of prostate C61; R97.21; Z19.1 CPT Codes Post Residual Void - PVR CPT Code: 38824-Hsys Void Residual by ultrasound ([id number])
== END 2024-01-30 10:33 | disposition home or self-care (01) ==
PROVIDERS: PCP Internal Medicine; Visit Provider Urology
DX: M85.80 Other specified disorders of bone density and structure, unspecified site (principal); C61 Malignant neoplasm of prostate; R97.21 Rising PSA following treatment for malignant neoplasm of prostate; Z19.1 Hormone sensitive malignancy status
CPT/HCPCS: 99213

== ENCOUNTER → 2024-01-30 09:25 | Outpatient (BNVA) | payer OTHER, SELFPAY | PROVIDERS: PCP Internal Medicine; Visit Provider Urology | DX: C61 Malignant neoplasm of prostate (principal); R97.21 Rising PSA following treatment for malignant neoplasm of prostate; M85.80 Other specified disorders of bone density and structure, unspecified site; Z19.1 Hormone sensitive malignancy status | CPT/HCPCS: 51798; 81003; 96402; J9217 ==

== ENCOUNTER 2024-05-07 14:16 | Outpatient (AMB) | payer OTHER, SELFPAY ==
--- NOTE | 2024-05-07 14:16 | MHC.OFFVIS ---
Intake Visit Reasons: 3m/PSA Intake Note: Patient is present for 3M/PSA Urology Medication:NONE Antibiotic Allergy:NONE Blood Thinner:NONE Cardiopulmonary Technologist Chief Required: No Allergies No Known Allergies Allergy (Verified 05/07/24 14:16) HPI Comments Details: Mr Cooper is a very pleasant male. He is a patient of Dr Garner. He is seen for the following urologic conditions. - Prostate Cancer - rising PSA postprostatectomy Telemedicine Evaluation 15 min Consultation Doximity Zoe Video Lab work not performed Has lost weight 02/09 <0.1, T 3 GnRH 11/09 <0.1 T 4 08/09 PSA <0.1, T 3 GnRH 01/21/23 - Salvage Radiation GnRH for 18 months 08/[address] Mike PSA did not fully resolve Prostate Cancer : Low-grade prostate cancer initial therapy active surveillance 2008, repeat bx 2009, 2015 - Biopsy 06/10 multicore High grade Histologic type: Adenocarcinoma, acinar type Monserrat score: 4+5=9 (right base lateral and medial), 4+4=8 (right apex lateral, right mid lateral and medial), 4+3=7 (right apex medial, left mid medial), 3+4=7 (left base medial, left mid lateral) Number cores positive: 10 Total number of cores: 12 % of tissue involved: 35% of all tissue examined Periprostatic fat inv.: Very close Seminal vesicle inv.: Not identified Perineural inv.: Present LVI: Not identified Two prior biopsies 2008 and 2015 with low-grade low volume disease ? Diagnosis was reached by?01/2009 needle biopsy, for elevated PSA 4.1, Gl 3+3 05/30 cores - 12/2015 MRI-fusion biopsy 07/28 core Gl 3+3, all core < 30% The Monserrat grade is?1st. 3+3 = 6, At biopsy 05/30 2nd , 3+3 = 6 07/28 , right base, right mid gland ? TNM Classification of Malignant Tumours (TNM)?T1c.? The D'Oliver (NCCN) risk category is?Low Risk (PSA< 10, Gl < 7, T1c).? Initial therapy included?Primary treatment, Deferred Therapy (active surveillance) Repeat biopsy 01/26 no disease detected Repeat biopsy saturation 01/01 - 07/28 core < 25% Monserrat 3+3 Recent labs included?a PSA (prostate-specific antigen) 2008 4.1, March 2009 2.9, October 2010 2.3, 32,012 3.2, February 2013 3.1, 2014 2.9, October 2015 6.6, October 2016 5.2, 04/05 5.4, 06/07 6.2, 07/08 Genetics - Polaris Rating 3.1 - left side active surveillance boundary, 01/07 13 Recent imaging included?an MRI (magnetic resonance imaging) 01/01 with 1cm lesion PiRads 3 - 04/09 MRI PI-RADS 5 - 2.4 cm lesion right posterior base. Abutment of right KANNAN. - 06/[address] - avid to prostate and right single node [facility] Medical History Prostate cancer Review of Systems Const All systems reviewed & are unremarkable except as noted in HPI and below Reports no additional complaints Resp Reports no additional complaints GI Reports no additional complaints Reports as per HPI Musc Reports no additional complaints Physical Exam Telemedicine evaluation Appropriate responses Regular breathing rate and rhythm HEENT Head: Yes normal to inspection Ears: hearing grossly normal bilaterally Eyes General: appearance normal, both eyes and all related structures Neck Neck: Yes normal visual inspection Chest Chest palpation & inspection: normal inspection of the chest Resp Effort & Inspection: normal respiratory effort and able to speak in complete sentences Telehealth Telehealth Location of provider rendering services: practice address Location of patient: address on file Patient Identification confirmed using: Name, : Yes Telehealth method: voice only Patient verbally consented to treatment: Yes Patient verbally consented to billing insurance company: Yes Patient informed of any privacy concerns related to visit: Yes Assessment & Plan Assessment & Plan (1) Prostate cancer: Comment: Low Volume, Low Grade 2008,2009,2015 High Volume, High Grade 2021 Code(s): C61 - Malignant neoplasm of prostate Category: Medical (2) Osteopenia due to cancer therapy: Code(s): M85.80 - Other specified disorders of bone density and structure, unspecified site Category: Medical Plan Three-month follow-up PSA Orders: Orders Prostate Specific Antigen 3 Months C61 - Malignant neoplasm of prostate, R97.21 - Rising PSA following treatment for malignant neoplasm of prostate, Z19.1 - Hormone sensitive malignancy status Testosterone, Total 3 Months C61 - Malignant neoplasm of prostate, R97.21 - Rising PSA following treatment for malignant neoplasm of prostate, Z19.1 - Hormone sensitive malignancy status Patient Instructions: Imaging studies, laboratory and physical exam results were discussed and reviewed in detail. No major barriers to patient understanding were identified. An opportunity to ask questions regarding the treatment plan was provided. All questions were answered. The patient expressed understanding and agreement with the above treatment plan. The patient is aware they should contact our office by phone for worsening of their current condition or the appearance of new urologic symptoms. Compliance is encouraged with any medications and followup testing that is ordered. It is a privilege to participate in the urologic care of your patient. If you have any questions or concerns regarding treatment for the above conditions, or other urologic issues, please do not hesitate to contact me. The office telephone contact is [phone]. This note is constructed using voice recognition software. While every effort has been made to ensure accuracy medical billing and coding instructor errors may have been included. Yours sincerely, Dr Sin Valencia MD, [facility] - Urology Providers of Expert, Compassionate Care for the Genitourinary System Coding Level of Care Code Tele Est Pt Level 3 (83690) Diagnoses Prostate cancer C61 Osteopenia due to cancer therapy M85.80
--- OUTSIDE RECORDS SUMMARY | 2024-05-07 14:17 | XMS_ITS ---
Author Name [facility] Organization Unknown History of Medication Use Medication Directions Dispensed Refills Start Date End Date Stat bicalutamide (CASODEX) 50 MG tablet 03/28/2023 active hydrochlorothiazide (HYDRODIURIL) 12.5 MG tablet 06/27/2022 active Multiple Vitamin (multivitamin) capsule Take 1 capsule by mouth daily. 03/28/2023 active losartan (COZAAR) 100 MG tablet 06/27/2022 active bicalutamide (CASODEX) 50 MG tablet 1 tablet (50 mg total) every morning. 08/23/2022 aborted losartan (COZAAR) 100 MG tablet Take 1 tablet (100 mg total) by mouth every morning. 08/23/2022 active oxyCODONE (ROXICODONE) 5 MG immediate release tablet Take 1 tablet (5 mg total) by mouth 4 times daily (every 6 hours) as needed for severe pain. Max Daily Amount: 20 mg 09/12/2022 aborted hydrochlorothiazide (HYDRODIURIL) 12.5 MG tablet Take 1 tablet (12.5 mg total) by mouth every morning. 08/23/2022 active docusate sodium (COLACE) 100 MG capsule Take 1 capsule (100 mg total) by mouth 2 (two) times a day. 09/12/2022 aborted sulfamethoxazole-trimeth oprim (BACTRIM DS,SEPTRA DS) 800-160 MG per tablet Take 1 tablet by mouth 2 (two) times a day. Please start the day prior to appointment for catheter removal, take the day of catheter removal, and finish prescription the day after catheter removal 09/11/2022 aborted No known medications No known medications 06/28/2022 active dutasteride (AVODART) 0.5 MG capsule 03/28/2023 active Problems Problem Status Onset Date Problem Type Date of Resoluti on Source History of prostate cancer active 2022-09-10 ProblemAct CCT Prostate cancer active 2023-03-26 ProblemAct [facility]
== END 2024-05-07 15:32 | disposition home or self-care (01) ==
LOC: HO.HUSH 14:16
PROVIDERS: PCP Internal Medicine; Visit Provider Urology
DX: C61 Malignant neoplasm of prostate (principal); M85.80 Other specified disorders of bone density and structure, unspecified site
CPT/HCPCS: 99213

== ENCOUNTER → 2024-05-07 14:16 | Outpatient (BNVA) | payer OTHER, SELFPAY | PROVIDERS: PCP Internal Medicine; Visit Provider Urology ==

== ENCOUNTER 2024-08-05 09:42 | Outpatient (AMB) | payer OTHER, SELFPAY ==
--- NOTE | 2024-08-05 09:42 | MHC.OFFVIS ---
Intake Visit Reasons: Blood in urine Intake Note: Patient is present for BLOOD IN URINE Urology Medication:NONE Antibiotic Allergy:NONE Blood Thinner:NONE Wax Machine Operator Required: No Allergies No Known Allergies Allergy (Verified 08/05/24 09:43) HPI Comments Details: Mr Cooper is a very pleasant male. He is a patient of Dr Garner. He is seen for the following urologic conditions. - Prostate Cancer - rising PSA postprostatectomy Telemedicine Evaluation 15 min Consultation Doximity Zoe Video Self-limiting episodes of hematuria Had been placed on aspirin by nib finisher after calcium CT Suggest to hold Will be here in September and performed cystoscopy 02/09 <0.1, T 3 GnRH 11/09 <0.1 T 4 08/09 PSA <0.1, T 3 GnRH 01/21/23 - Salvage Radiation GnRH for 18 months 08/[address] Mike PSA did not fully resolve Prostate Cancer : Low-grade prostate cancer initial therapy active surveillance 2008, repeat bx 2009, 2015 - Biopsy 06/10 multicore High grade Histologic type: Adenocarcinoma, acinar type [place] score: 4+5=9 (right base lateral and medial), 4+4=8 (right apex lateral, right mid lateral and medial), 4+3=7 (right apex medial, left mid medial), 3+4=7 (left base medial, left mid lateral) Number cores positive: 10 Total number of cores: 12 % of tissue involved: 35% of all tissue examined Periprostatic fat inv.: Very close Seminal vesicle inv.: Not identified Perineural inv.: Present LVI: Not identified Two prior biopsies 2008 and 2015 with low-grade low volume disease ? Diagnosis was reached by?01/2009 needle biopsy, for elevated PSA 4.1, Gl 3+3 05/30 cores - 12/2015 MRI-fusion biopsy 07/28 core Gl 3+3, all core < 30% The [place] grade is?1st. 3+3 = 6, At biopsy 05/30 2nd , 3+3 = 6 07/28 , right base, right mid gland ? TNM Classification of Malignant Tumours (TNM)?T1c.? The D'Oliver (NCCN) risk category is?Low Risk (PSA< 10, Gl < 7, T1c).? Initial therapy included?Primary treatment, Deferred Therapy (active surveillance) Repeat biopsy 01/26 no disease detected Repeat biopsy saturation 01/01 - 07/28 core < 25% Monserrat 3+3 Recent labs included?a PSA (prostate-specific antigen) 2008 4.1, March 2009 2.9, October 2010 2.3, 32,012 3.2, February 2013 3.1, 2014 2.9, October 2015 6.6, October 2016 5.2, 04/05 5.4, 06/07 6.2, 07/08 Genetics - Polaris Rating 3.1 - left side active surveillance boundary, 01/07 13 Recent imaging included?an MRI (magnetic resonance imaging) 01/01 with 1cm lesion PiRads 3 - 04/09 MRI PI-RADS 5 - 2.4 cm lesion right posterior base. Abutment of right KANNAN. - 06/[address] - avid to prostate and right single node [facility] History Prostate cancer Assessment & Plan Assessment & Plan (1) Prostate cancer: Comment: Low Volume, Low Grade 2008,2009,2015 High Volume, High Grade 2021 Code(s): C61 - Malignant neoplasm of prostate Category: Medical (2) Gross hematuria: Code(s): R31.0 - Gross hematuria Category: Medical Plan Cystoscopy at September visit Patient Instructions: This note is constructed using voice recognition software. While every effort has been made to ensure accuracy trailers and motor homes salesperson errors may have been included. Imaging studies, laboratory and physical exam results were discussed and reviewed in detail. No major barriers to patient understanding were identified. An opportunity to ask questions regarding the treatment plan was provided. All questions were answered. The patient expressed understanding and agreement with the above treatment plan. The patient is aware they should contact our office by phone for worsening of their current condition or the appearance of new urologic symptoms. Compliance is encouraged with any medications and followup testing that is ordered. It is a privilege to participate in the urologic care of your patient. If you have any questions or concerns regarding treatment for the above conditions, or other urologic issues, please do not hesitate to contact me. The office telephone contact is [phone]. Sincerely, Dr Sin Valencia MD, [facility] - Urology Compassionate Specialist Care for the Genitourinary System Coding Level of Care Code Tele Est Pt Level 3 (14989) Complex EM visit Add On G2211 Diagnoses Prostate cancer C61 Gross hematuria R31.0
== END 2024-08-05 10:19 | disposition home or self-care (01) ==
LOC: HO.HUSH 09:42
PROVIDERS: PCP Internal Medicine; Visit Provider Urology
DX: C61 Malignant neoplasm of prostate (principal); R31.0 Gross hematuria
CPT/HCPCS: 99213

== ENCOUNTER → 2024-08-05 09:42 | Outpatient (BNVA) | payer OTHER, SELFPAY | PROVIDERS: PCP Internal Medicine; Visit Provider Urology ==

== ENCOUNTER 2024-10-20 14:37 | Outpatient (AMB) | payer OTHER, SELFPAY ==
--- NOTE | 2024-10-20 14:37 | A.OFFVIS_ITS ---
Intake Visit Reasons: follow up/ labs Intake Note: Patient is present for LABS F/U Urology Medication:NONE Antibiotic Allergy:NONE Blood Thinner:NONE Ob/Gyn Doctor Required: No Allergies No Known Allergies Allergy (Verified 10/20/24 14:38) HPI Comments Details: Mr Cooper is a very pleasant male. He is a patient of Dr Garner. He is seen for the following urologic conditions. - Prostate Cancer - rising PSA postprostatectomy Telemedicine Evaluation 15 min Consultation Doximity Zoe Video No further episode of hematuria Discussed results Four month follow-up May benefit from testosterone restart but has minimal symptoms 10/10 <0.1 T 3 02/09 <0.1, T 3 GnRH 11/09 <0.1 T 4 08/09 PSA <0.1, T 3 GnRH 01/21/23 - Salvage Radiation GnRH for 18 months 08/[address] Mike PSA did not fully resolve Prostate Cancer : Low-grade prostate cancer initial therapy active surveillance 2008, repeat bx 2009, 2015 - Biopsy 06/10 multicore High grade Histologic type: Adenocarcinoma, acinar type Monserrat score: 4+5=9 (right base lateral and medial), 4+4=8 (right apex lateral, right mid lateral and medial), 4+3=7 (right apex medial, left mid medial), 3+4=7 (left base medial, left mid lateral) Number cores positive: 10 Total number of cores: 12 % of tissue involved: 35% of all tissue examined Periprostatic fat inv.: Very close Seminal vesicle inv.: Not identified Perineural inv.: Present LVI: Not identified Two prior biopsies 2008 and 2015 with low-grade low volume disease ? Diagnosis was reached by?01/2009 needle biopsy, for elevated PSA 4.1, Gl 3+3 05/30 cores - 12/2015 MRI-fusion biopsy 07/28 core Gl 3+3, all core < 30% The [place] grade is?1st. 3+3 = 6, At biopsy 05/30 2nd , 3+3 = 6 07/28 , right base, right mid gland ? TNM Classification of Malignant Tumours (TNM)?T1c.? The D'Oliver (NCCN) risk category is?Low Risk (PSA< 10, Gl < 7, T1c).? Initial therapy included?Primary treatment, Deferred Therapy (active surveillance) Repeat biopsy 01/26 no disease detected Repeat biopsy saturation 01/01 - 07/28 core < 25% Monserrat 3+3 Recent labs included?a PSA (prostate-specific antigen) 2008 4.1, March 2009 2.9, October 2010 2.3, 32,012 3.2, February 2013 3.1, 2014 2.9, October 2015 6.6, October 2016 5.2, 04/05 5.4, 06/07 6.2, 07/08 Genetics - Polaris Rating 3.1 - left side active surveillance boundary, 01/07 13 Recent imaging included?an MRI (magnetic resonance imaging) 01/01 with 1cm lesion PiRads 3 - 04/09 MRI PI-RADS 5 - 2.4 cm lesion right posterior base. Abutment of right KANNA[place]. - 06/[address] - avid to prostate and right single node [facility] Medical History Prostate cancer Review of Systems Const All systems reviewed & are unremarkable except as noted in HPI and below Reports no additional complaints Resp Reports no additional complaints GI Reports no additional complaints Reports as per HPI Musc Reports no additional complaints Physical Exam Telemedicine evaluation Appropriate responses Regular breathing rate and rhythm HEENT Head: Yes normal to inspection Ears: hearing grossly normal bilaterally Eyes General: appearance normal, both eyes and all related structures Neck Neck: Yes normal visual inspection Chest Chest palpation & inspection: normal inspection of the chest Resp Effort & Inspection: normal respiratory effort and able to speak in complete sentences Telehealth Telehealth Location of provider rendering services: practice address Location of patient: address on file Patient Identification confirmed using: Name, : Yes Telehealth method: voice only Patient verbally consented to treatment: Yes Patient verbally consented to billing insurance company: Yes Patient informed of any privacy concerns related to visit: Yes Assessment & Plan Assessment & Plan (1) Biochemically recurrent castration-sensitive adenocarcinoma of prostate: Code(s): C61 - Malignant neoplasm of prostate; R97.21 - Rising PSA following treatment for malignant neoplasm of prostate; Z19.1 - Hormone sensitive malignancy status Category: Medical Plan Four month follow-up lab work Orders: Orders Prostate Specific Antigen 4 Months R97.21 - Rising PSA following treatment for malignant neoplasm of prostate Testosterone, Total 4 Months R97.21 - Rising PSA following treatment for malignant neoplasm of prostate Patient Instructions: This note is constructed using voice recognition software. While every effort has been made to ensure accuracy mechanical engineering director errors may have been included. Imaging studies, laboratory and physical exam results were discussed and reviewed in detail. No major barriers to patient understanding were identified. An opportunity to ask questions regarding the treatment plan was provided. All questions were answered. The patient expressed understanding and agreement with the above treatment plan. The patient is aware they should contact our office by phone for worsening of their current condition or the appearance of new urologic symptoms. Compliance is encouraged with any medications and followup testing that is ordered. It is a privilege to participate in the urologic care of your patient. If you h ave any questions or concerns regarding treatment for the above conditions, or other urologic issues, please do not hesitate to contact me. The office telephone contact is [phone]. Sincerely, Dr Sin Valencia MD, [facility] - Urology Compassionate Specialist Care for the Genitourinary System Coding Level of Care Code Tele Est Pt Level 3 (73282) Complex EM visit Add On G2211 Diagnoses Biochemically recurrent castration-sensitive adenocarcinoma of prostate C61; R97.21; Z19.1
== END 2024-10-20 15:48 | disposition home or self-care (01) ==
LOC: HO.HUSH 14:37
PROVIDERS: PCP Internal Medicine; Visit Provider Urology
DX: C61 Malignant neoplasm of prostate (principal); R97.21 Rising PSA following treatment for malignant neoplasm of prostate; Z19.1 Hormone sensitive malignancy status
CPT/HCPCS: 99213

== ENCOUNTER 2025-03-31 10:01 | Outpatient (AMB) | payer OTHER, SELFPAY ==
--- NOTE | 2025-03-31 09:59 | MHC.OFFVIS ---
Intake Visit Reasons: 4m/PSA/Testo Intake Note: Patient is present for 4 mo follow up Urology Medication:Eligard Antibiotic Allergy:NONE Blood Thinner:NONE Labs done : 03/03/25: PSA < 0.1, Total Testosterone : 29 Educational Resource Coordinator Required: No Allergies No Known Allergies Allergy (Verified 10/20/24 14:38) HPI Comments Details: Mr Cooper is a very pleasant male. He is a patient of Dr Garner. He is seen for the following urologic conditions. - Prostate Cancer - rising PSA postprostatectomy Discussed current lab work Continue to check Q four-month Does note libido was suppressed however overall feels in good mood 03/12 <0.1 29 10/10 <0.1 T 3 02/09 <0.1, T 3 GnRH 11/09 <0.1 T 4 08/09 PSA <0.1, T 3 GnRH 01/21/23 - Salvage Radiation GnRH for 18 months 08/[address] Mike PSA did not fully resolve Prostate Cancer : Low-grade prostate cancer initial therapy active surveillance 2008, repeat bx 2009, 2015 - Biopsy 06/10 multicore High grade Histologic type: Adenocarcinoma, acinar type Monserrat score: 4+5=9 (right base lateral and medial), 4+4=8 (right apex lateral, right mid lateral and medial), 4+3=7 (right apex medial, left mid medial), 3+4=7 (left base medial, left mid lateral) Number cores positive: 10 Total number of cores: 12 % of tissue involved: 35% of all tissue examined Periprostatic fat inv.: Very close Seminal vesicle inv.: Not identified Perineural inv.: Present LVI: Not identified Two prior biopsies 2008 and 2015 with low-grade low volume disease ? Diagnosis was reached by?01/2009 needle biopsy, for elevated PSA 4.1, Gl 3+3 05/30 cores - 12/2015 MRI-fusion biopsy 07/28 core Gl 3+3, all core < 30% The [place] grade is?1st. 3+3 = 6, At biopsy 05/30 2nd , 3+3 = 6 07/28 , right base, right mid gland ? TNM Classification of Malignant Tumours (TNM)?T1c.? The D'Oliver (NCCN) risk category is?Low Risk (PSA< 10, Gl < 7, T1c).? Initial therapy included?Primary treatment, Deferred Therapy (active surveillance) Repeat biopsy 01/26 no disease detected Repeat biopsy saturation 01/01 - 07/28 core < 25% [place] 3+3 Recent labs included?a PSA (prostate-specific antigen) 2008 4.1, March 2009 2.9, October 2010 2.3, 32,012 3.2, February 2013 3.1, 2014 2.9, October 2015 6.6, October 2016 5.2, 04/05 5.4, 06/07 6.2, 07/08 Genetics - Polaris Rating 3.1 - left side active surveillance boundary, 01/07 13 Recent imaging included?an MRI (magnetic resonance imaging) 01/01 with 1cm lesion PiRads 3 - 04/09 MRI PI-RADS 5 - 2.4 cm lesion right posterior base. Abutment of right KANNAN. - 06/[address] - avid to prostate and right single node [facility] Medical History Prostate cancer Review of Systems Const Denies chills and Denies fever(s) Card Reports no additional complaints and Denies syncope Resp Denies cough GI Denies abdominal pain and Denies heartburn Reports as per HPI and Denies change in libido Neuro Denies syncope Psych Denies change in libido Endo Denies change in libido Physical Exam Const General: cooperative, healthy appearing, comfortable and no acute distress Orientation/consciousness: patient oriented x3 HEENT Face and sinus: Yes normal facial exam Mouth: moist mucous membranes Neck Neck: Yes normal visual inspection, Yes full ROM and Yes trachea midline Chest Chest palpation & inspection: normal inspection of the chest Resp Effort & Inspection: normal respiratory effort, able to speak in complete sentences and no respiratory distress GI Inspection: Yes normal to inspection Back/Spine/Pelvis Cervical Spine: normal cervical lordosis Thoracic/Lumbar Spine: thoracic and lumbar spine normal to inspection Skin General skin exam: no rashes or lesions noted Neuro General: patient oriented x3, gait normal, tone normal and moves all extremities Extrem General: Yes normal to inspection and Yes capillary refill normal Assessment & Plan Assessment & Plan (1) Biochemically recurrent castration-sensitive adenocarcinoma of prostate: Code(s): C61 - Malignant neoplasm of prostate; R97.21 - Rising PSA following treatment for malignant neoplasm of prostate; Z19.1 - Hormone sensitive malignancy status Category: Medical Plan Four month follow-up lab work Orders: Orders Prostate Specific Antigen 4 Months R97.21 - Rising PSA following treatment for malignant neoplasm of prostate Testosterone, Total 4 Months R97.21 - Rising PSA following treatment for malignant neoplasm of prostate Patient Instructions: This note is constructed using voice recognition software. While every effort has been made to ensure accuracy child daycare worker errors may have been included. Imaging studies, laboratory and physical exam results were discussed and reviewed in detail. No major barriers to patient understanding were identified. An opportunity to ask questions regarding the treatment plan was provided. All questions were answered. The patient expressed understanding and agreement with the above treatment plan. The patient is aware they should contact our office by phone for worsening of their current condition or the appearance of new urologic symptoms. Compliance is encouraged with any medications and followup testing that is ordered. It is a privilege to participate in the urologic care of your patient. If you have any questions or concerns regarding treatment for the above conditions, or other urologic issues, please do not hesitate to contact me. The office telephone contact is [phone]. Sincerely, Dr Sin Valencia MD, [facility] - Urology Compassionate Specialist Care for the Genitourinary System Coding Level of Care Code Est Pt Level 3 (92512) Complex EM visit Add On G2211 Diagnoses Biochemically recurrent castration-sensitive adenocarcinoma of prostate C61; R97.21; Z19.1
--- OUTSIDE RECORDS SUMMARY | 2025-03-31 11:58 | XMS_ITS | Encounter Summary ---
Author Organization [facility] Address [address] [place], [place] [id number] Care Team Providers Care Personal Banking Representative Name Role Phone Ap Garner MD Primary Care Provider Celina Kenyon RN Unavailable [phone] Encounter Details Date Type Department Care Team (Late st Contact Info) Description 01/10/2023 Scanned Document [facility] Urologic Surgery [address] [id number] Gianluca Mike MD [address] [place] [id number] Social History Tobacco Use Types Packs/Day Years Used Date Smoking Tobacco: Former Cigarettes Q uit: 1985 Smokeless Tobacco: Never Alcohol Use Standard Drinks/Week Comments Yes 14 (1 standard drink = 0.6 oz pu re alcohol) AUDIT-C Answer Date Recorded Q1: How often do you have a drink containing alcohol? 4 or more times a week 08/14/2022 Q2: How many drinks containi ng alcohol do you have on a typical day when you are drinking? 1 or 2 3 Q3: How often do you have si x or more drinks on one occasion? Less than monthly 08/14/2022 Overall Financial Resource Strain (CARDIA) Answe r Date Recorded How hard is it for you to pa y for the very basics like food, housing, medical care, and heating? Not hard at all 07/01/2022 PHQ-2 Answer Date Recorded PHQ-2 Total Score 0 09/03/2022 Hunger Vital Sign Answer Date Recorded Within the past 12 months, y ou worried that your food would run out before you got the money to buy more. Never true 07/01/19 Within the past 12 months, t he food you bought just didn't last and you didn't have money to get more. Never true 07/01/2022 PRAPARE - Transportation Answer Date Re corded In the past 12 months, has l ack of transportation kept you from medical appointments or from getting medications? No 06/19 In the past 12 months, has l ack of transportation kept you from meetings, work, or from getting things needed for daily living? No 07/01/2022 Housing Stability Vital Sign Answer Nithin e Recorded In the last 12 months, was t here a time when you were not able to pay the mortgage or rent on time? No 07/01/2022 In the last 12 months, how many places have you lived? 1 07/01/2022 In the last 12 months, was t here a time when you did not have a steady place to sleep or slept in a mcc (including now)? No 07/01/2022 Sex and Gender Information Value Date Recorded Sex Assigned at Male 06/26/2022 9:39 AM EST Legal Sex Male 3:12 PM EST Gender Identity Male 06/26/2022 9:39 AM EST Sexual Orientation Heterosexual (straight) 06/26 9:39 AM EST documented as of this encounter Plan of Treatment Not on file documented as of this encounter Visit Diagnoses Not on filedocumented in this encounter Care Teams Personal Banking Representative Relationship Specialty Start Date End Date Ap Garner MD [facility]i Rosen [address] [address] PCP - General 06/05/22 Celina Kenyon RN [address] [place] [address] Oncology Nurse Navigator 06/28/22 documented as of this encounter
--- OUTSIDE RECORDS SUMMARY | 2025-03-31 11:58 | XMS_ITS | Encounter Summary ---
Author Organization [facility] Address [address] [place] [address] Care Team Providers Care Clothing Supervisor Name Role Phone Ap Garner MD Primary Care Provider [phone] Celina Kenyon RN Unavailable [phone] Encounter Details Date Type Department Care Team (Late st Contact Info) Description 07/31/2023 Scanned Document [facility] [address] [facility] [address] [place] [address] Sin Valencia MD 100 [facility] [address] [place] [address] Social History Tobacco Use Types Packs/Day Years [...] on filedocumented in this encounter Care Teams Clothing Supervisor Relationship Specialty Start Date End Date Ap Garner MD [facility] Connor Jessika [address] [address] PCP - General 06/05/22 Celina Kenyon RN [address] [place] [address] Oncology Nurse Navigator 06/28/22 documented as of this encounter
--- OUTSIDE RECORDS SUMMARY | 2025-03-31 11:58 | XMS_ITS | Encounter Summary ---
Author Organization [facility] Address [address] [place] [address] Care Team Providers Care Print Room Worker Name Role Phone Ap Garner MD Primary Care Provider [phone] Celina Kenyon RN Unavailable [phone] Encounter Details Date Type Department Care Team (Late st Contact Info) Description 01/21/2023 Scanned Document GENERIC EXTERNAL DATA DEPARTMENT Sin Valencia MD 100 [facility] [address] [place] [address] Social History Tobacco Use Types Packs/Day Years [...] when you are drinking? 1 or 2 Q3: How often do you have si [...] money to buy more. Never true 07/01/19 23 Within the past 12 months, t he [...] place to sleep or slept in a nursing home (including now)? No 07/01/2022 Sex and Gender [...] on filedocumented in this encounter Care Teams Print Room Worker Relationship Specialty Start Date End Date Ap Garner MD [address] Jessika [address] [address] PCP - General 06/05/22 Celina Kenyon RN [address] [place] [address] Oncology Nurse Navigator 06/28/22 documented as of this encounter
--- OUTSIDE RECORDS SUMMARY | 2025-03-31 11:58 | XMS_ITS | Encounter Summary ---
Author Organization [facility] Address [address] [place] [address] Care Team Providers Care Aircraft Ordnance Systems Mechanic Name Role Phone Ap Garner MD Primary Care Provider [phone] Celina Kenyon RN Unavailable [phone] Encounter Details Date Type Department Care Team (Late st Contact Info) Description 06/04/2022 Scanned Document [facility] Urologic Surgery [place] [address] [facility] [address] [place] [address] Sin Valencia MD 100 [facility] [address] [place] [address] Social History Tobacco Use Types Packs/Day Years Used Date Smoking Tobacco: Never Assessed Sex and Gender Information Value Date Recorded Sex Assigned at Male 06/26/2022 9:39 AM EST Legal Sex Male 3:12 PM EST Gender Identity Male 06/26/2022 9:39 AM EST Sexual Orientation Heterosexual (straight) 06/26 9:39 AM EST documented as of this encounter Plan of Treatment Not on file documented as of this encounter Visit Diagnoses Not on filedocumented in this encounter Care Teams Aircraft Ordnance Systems Mechanic Relationship Specialty Start Date End Date Ap Garner MD 300 [facility] [address] [place] [address] PCP - General 06/05/22 Celina Kenyon RN 80 [facility] [place], [place] [id number] Oncology Nurse Navigator 06/28/22 documented as of this encounter
--- OUTSIDE RECORDS SUMMARY | 2025-03-31 11:58 | XMS_ITS | Clinical Summary ---
Author Organization [facility] [employer] [facility] Address [address] [facility] [place] [address] Phone Care Team Providers Care Caustic Purification Operator Name Role Phone Ap Garner MD Primary Care Provider [phone] Allergies No known active allergies Medications multivitamin complete formula with D3000 (COMPLETE D3000) 3,000-800 unit-mcg capsule Take 1 capsule by mouth daily. Active hydroCHLOROthia zide 12.5 mg tablet Take 1 tablet (12.5 mg total) by mouth daily. 05/24/2022 Active losartan (COZAAR) 100 mg tablet Take 1 tablet (100 mg total) by mouth daily. 05/24/2022 Active aspirin 81 mg EC tablet Take 1 tablet (81 mg total) by mouth 1 (one) time each day. 30 each 11 04/01/2024 5 Active atorvastatin (LIPITOR) 20 mg tablet Take 1 tablet (20 mg total) by mouth 1 (one) time each day. 90 each 3 04/28/2024 Active Active Problems Problem Noted Date Diagnosed Date Elevated coronary artery calcium score 4 Assessment & Plan (04/01/2024 5:28 PM EST): His ASCVD risk score is 13.6%. With elevated ASCVD risk score and calcium score, we decided to move forward with atorvastatin for him. Also would like to start him on aspirin 81 mg daily. We discussed about the side effects of atorvastatin and hence we started a low-dose atorvastatin and plan to repeat lipid panel again in 3 to 6 months to determine titration of dosage. If the lipid panel still is elevated, we will consider to gradually go up to 40 mg and eventually to 80 mg. We have ordered CPK and liver enzyme levels considering his concern about side effects of statin. HTN (hypertension) 03/31/2024 Assessment & Plan (04/01/2024 5:28 PM EST): Blood pressure is well-controlled at this time. Continue hydrochlorothiazide and losartan. HLD (hyperlipidemia) 03/31/2024 Assessment & Plan (04/01/2024 5:28 PM EST): Check lipid panel again in 3 to 6 months before next visit. Orders: Lipid panel; Future CK; Future Hepatic function panel; Future Lipid panel CK Hepatic function panel Surgical History Surgery Date Site/Laterality Comments PROSTATECTOMY Medical History Medical History Date Comments Family history of abdominal aortic aneurysm (AAA ) IFG (impaired fasting glucose) Prostate neoplasm Social History Tobacco Use Types Packs/Day Years Used Date Smoking Tobacco: Former Cigarettes Smokeless Tobacco: Never Tobacco Cessation:Counseling Given: Not Answered Alcohol Use Standard Drinks/Week Comments Yes 0 (1 standard drink = 0.6 oz pur e alcohol) occ Sex and Gender Information Value Date Recorded Sex Assigned at Not on file Legal Sex Male 9:11 PM EST Gender Identity Not on file Sexual Orientation Not on file Obstetrics History Last Filed Vital Signs Vital Sign Reading Time Taken Comments Blood Pressure 143/84 06/10/2024 8:35 AM EST Pulse 85 06/10/2024 8:35 AM EST Temperature 36.6 C (97.9 F) 06/10/2024 8:35 AM EST Respiratory Rate - - Oxygen Saturation 99% 06/10/2024 8:35 AM EST Inhaled Oxygen Concentration - - Weight 101 kg (223 lb) 06/10/2024 8:35 AM EST Height 175.3 cm (5' 9 ) 05/06/2024 3:26 PM EST Body Mass Index 32.93 05/06/2024 3:26 PM EST Plan of Treatment Upcoming Encounters Date Type Department Care Team (Late st Contact Info) Description 04/01/2025 8:10 AM EST Office Visit [facility] [address] [place] [phone] Jacqueline Mercer NP [address] [place] [address] [address] [place] [address] Health Maintenance Due Date Last Done Comments Colorectal Cancer Screening: Colonoscopy 1960 DTaP,Tdap,and Td Vaccines (1 - Tdap) 1979 Pneumococcal Vaccine: 50+ Years (1 of 2 - PCV) 1979 Zoster Vaccines (1 of 2) 1979 RSV Immunization Adult Patients (1 - Risk 50-74 years 1-dose series) 2010 HIV Screening 06/13/2023 Hepatitis C Screening 06/13/2023 Social Influencers of Health Screening 06/13/2023 Hypertension/CHF/CAD Annual BMP Blood Test 03/31/2024 09/04/2022 Depression Screening 05/19/2024 COVID-19 Vaccine ( season) 2025 01/28/2024, 2023, 01/28/2022, Additional history exists Influenza Vaccine (#1) 2025 , 02/27/2022, 03/14/2020, Additional history exists Cholesterol Screening (Lipid Panel) 05/07/2029 05/07/2024 HIB Vaccines Aged Out No longer eligi ble based on patient's age to complete this topic HPV Vaccines Aged Out No longer eligi ble based on patient's age to complete this topic Hepatitis A Vaccines Aged Out No long er eligible based on patient's age to complete this topic Hepatitis B Vaccines Aged Out No long er eligible based on patient's age to complete this topic IPV Vaccines Aged Out No longer eligi ble based on patient's age to complete this topic MMR Vaccines Aged Out No longer eligi ble based on patient's age to complete this topic Meningococcal ACWY Vaccine Aged Out N o longer eligible based on patient's age to complete this topic Meningococcal B Vaccine Aged Out No l onger eligible based on patient's age to complete this topic RSV Immunization Patients Under 20 months Aged Out No longer eligible based on patient's age to complete this topic Varicella Vaccines Aged Out No longer eligible based on patient's age to complete this topic Procedures Procedure Name Priority Date/Time Associated Diagnosis Comments LIPID PANEL Routine 05/07/2024 9:05 AM EST Mixed hyperlipidemia from Last 3 Months or Most Recently Relevant to Health Maintenance Results * Lipid panel (05/07/2024 9:05 AM EST) Cholesterol Total 165 100 - 199 mg/dL [facility] 1 Triglycerides 111 0 - 149 mg/dL [facility] 1 HDL Cholesterol 77 >39 mg/dL [facility] 1 VLDL Cholesterol Calculated 19 5 - 40 mg/dL [facility] 1 LDL Chol Calc (NIH) 69 0 - 99 mg/dL [facility] 1 Blood Venous blood specimen / Unknown 05/07/2024 9:05 AM EST 05/07/2024 Narrative [facility] 1 - 05/08/2024 4:06 AM EST Performed at: 01 - [facility] [address] [id number] Cane Flume Chute Operator: Ivett Clinton MD, Phone: [phone] us Tal Boss MD LAB BLOOD ORDERABLES Final Res ult [facility] 1 from Last 3 Months or Most Recently Relevant to Health Maintenance Insurance * Guarantor: Prema Sheth Account Type Relation to Patient Date of Phone Billing Address Personal/Family Self [address] [place] [address] [facility] [address] [place] [address] Care Teams Caustic Purification Operator Relationship Specialty Start Date End Date Ap Garner MD [address] [place] [address] PCP - General Internal Medicine 03/30/24
--- OUTSIDE RECORDS SUMMARY | 2025-03-31 11:58 | XMS_ITS | Encounter Summary ---
Author Organization [facility] Address [address] [place] [address] Care Team Providers Care Associate Professor Of Psychology Name Role Phone Ap Garner MD Primary Care Provider [phone] Celina Kenyon RN Unavailable [phone] Encounter Details Date Type Department Care Team (Late st Contact Info) Description 04/09/2022 Scanned Document [facility] Urologic Surgery [place] 85 [facility] [address] [place] [address] Sin Valencia MD 100 [facility] [address] [place] [address] Social History Tobacco Use Types Packs/Day Years [...] on filedocumented in this encounter Care Teams Associate Professor Of Psychology Relationship Specialty Start Date End Date Ap Garner MD 300 [facility] [address] [place] [address] PCP - General 06/05/22 Celina Kenyon RN 80 [facility] [place], [place] [phone] Oncology Nurse Navigator 06/28/22 documented as of this encounter
--- OUTSIDE RECORDS SUMMARY | 2025-03-31 11:58 | XMS_ITS | Encounter Summary ---
Author Organization [facility] Address [address] [place] [address] Care Team Providers Care Cable Inspector Name Role Phone Ap Garner MD Primary Care Provider Celina Kenyon RN Unavailable [phone] Encounter Details Date Type Department Care Team (Late st Contact Info) Description 04/04/2022 Scanned Document [facility] Urologic Surgery [place] 85 [facility] [address] [place] [address] Sin Valencia MD 100 [facility] [address] [place] [address] Social History Tobacco Use Types Packs/Day Years [...] on filedocumented in this encounter Care Teams Cable Inspector Relationship Specialty Start Date End Date Ap Garner MD 300 [facility] [address] [place] [address] PCP - General 06/05/22 Celina Kenyon RN 80 [facility] [place], [place] [phone] Oncology Nurse Navigator 06/28/22 documented as of this encounter
--- OUTSIDE RECORDS SUMMARY | 2025-03-31 11:58 | XMS_ITS | Encounter Summary ---
Author Organization [facility] Address [address] [place] [address] Care Team Providers Care Machinist Job Setter Name Role Phone Ap Garner MD Primary Care Provider [phone] Celina Kenyon RN Unavailable [phone] Encounter Details Date Type Department Care Team (Late st Contact Info) Description 05/28/2022 Scanned Document [facility] Urologic Surgery [place] 85 [facility] [address] [place] [address] Sin Valencia MD 100 [facility] [address] [place] [address] Social History Tobacco Use Types Packs/Day Years [...] on filedocumented in this encounter Care Teams Machinist Job Setter Relationship Specialty Start Date End Date Ap Garner MD 300 [facility] [address] [place] [address] PCP - General 06/05/22 Celina Kenyon RN 80 [facility]304 [place], [place] [phone] Oncology Nurse Navigator 06/28/22 documented as of this encounter
--- OUTSIDE RECORDS SUMMARY | 2025-03-31 11:58 | XMS_ITS | Encounter Summary ---
Author Organization [facility] Address [address] [place] [address] Care Team Providers Care Vehicle Operator Technician Name Role Phone Ap Ganrer MD Primary Care Provider [phone] Celina Kenyon RN Unavailable [phone] Encounter Details Date Type Department Care Team (Late st Contact Info) Description 06/04/2022 Scanned Document [facility] Urologic Surgery [address] [address] Ap Garner MD [address] [address] Social History Tobacco Use Types Packs/Day Years [...] on filedocumented in this encounter Care Teams Vehicle Operator Technician Relationship Specialty Start Date End Date Ap Garner MD [address] [facility] 102 [place] [address] PCP - General 06/05/22 Celina Kenyon RN [address] [phone] Oncology Nurse Navigator 06/28/22 documented as of this encounter
--- OUTSIDE RECORDS SUMMARY | 2025-03-31 11:58 | XMS_ITS | Clinical Summary ---
Author Organization [facility] Address [address] [place] [address] Care Team Providers Care Residential Construction Instructor Name Role Phone Ap Garner MD Primary Care Provider [phone] Celina Kenyon RN Unavailable [phone] Allergies No known active allergies Medications hydrochlorothia zide (HYDRODIURIL) 12.5 MG tablet Take 1 tablet (12.5 mg total) by mouth every morning. 05/24/2022 Active losartan (COZAAR) 100 MG tablet Take 1 tablet (100 mg total) by mouth every morning. 05/24/2022 Active dutasteride (AVODART) 0.5 MG capsule 02/26/2023 Active Multiple Vitamin (multivitamin) capsule Take 1 capsule by mouth daily. Active Active Problems Problem Noted Date Diagnosed Date Prostate cancer 03/26/2023 History of prostate cancer 09/10/2022 Resolved Problems Problem Noted Date Diagnosed Date Resolved Date Prostate cancer 06/27/2022 09/10/2022 Family History Medical History Relation Name Comments Cancer, Bladder Father Marcin Cancer, Kidney Neg Hx Cancer, Prostate Neg Hx Relation Name Status Comments Father Marcin Social History Tobacco Use Types Packs/Day Years Used Date Smoking Tobacco: Former Cigarettes Q uit: 1985 Smokeless Tobacco: Never Tobacco Cessation:Counseling Given: Not Answered Alcohol Use Standard Drinks/Week Comments Yes 14 [...] place to sleep or slept in a custodial (including now)? No 07/01/2022 Sex and Gender Information Value Date Recorded Sex Assigned at Male 06/26/2022 9:39 AM EST Legal Sex Male 3:12 PM EST Gender Identity Male 06/26/2022 9:39 AM EST Sexual Orientation Heterosexual (straight) 06/26 9:39 AM EST Last Filed Vital Signs Vital Sign Reading Time Taken Comments Blood Pressure 158/98 10/15/2023 11:03 AM EDT Pulse 80 10/15/2023 11:03 AM EDT Temperature 36.7 C (98.1 F) 09/04/2022 8:14 AM EDT Respiratory Rate 16 10/15/2023 11:03 AM EDT Oxygen Saturation 93% 09/04/2022 8:14 AM EDT Inhaled Oxygen Concentration - - Weight 98.7 kg (217 lb 8.6 oz) 10/15/2023 11:03 AM EDT Per pt Height 173.4 cm (5' 8.25 ) 10/15/2023 11:03 AM E DT Per pt Body Mass Index 32.83 10/15/2023 11:03 AM EDT Plan of Treatment Health Maintenance Due Date Last Done Comments Hepatitis C Virus Screening 1960 COVID-19 Vaccine (#1) 1965 HIV Screening 1973 DTaP/Tdap/Td Vaccines (1 - Tdap) 1979 Pneumococcal Vaccines 50+ (1 of 2 - PCV) 1979 Zoster (Shingles) Vaccine (1 of 2) 1979 Colonoscopy 2005 RSV Vaccine 50 years and old er and Patients (1 - Risk 50-74 years 1-dose series) 2010 Influenza Vaccine 12/17/2024 Hepatitis B Vaccines Aged Out No long er eligible based on patient's age to complete this topic Insurance * Guarantor: Hollis Cooper Account Type Relation to Patient Date of Phone Billing Address Personal/Family Self [address] [place] [address] [facility] Advance Directives * Full Code (Latest Code Status on File) Date Activated Date Inactivated Comments 09/03/2022 9:25 PM * Full Code Date Activated Date Inactivated Comments 09/03/2022 10:06 AM 09/03/2022 9:25 PM Care Teams Residential Construction Instructor Relationship Specialty Start Date End Date Ap Garner MD [facility] [address] [facility] [address] [place] [address] PCP - General 06/05/22 Celina Kenyon RN [address] [place] [address] Oncology Nurse Navigator 06/28/22
== END 2025-03-31 10:57 | disposition home or self-care (01) ==
LOC: HO.HUSH 10:02
PROVIDERS: PCP Internal Medicine; Visit Provider Urology
DX: C61 Malignant neoplasm of prostate (principal); R97.21 Rising PSA following treatment for malignant neoplasm of prostate; Z19.1 Hormone sensitive malignancy status
CPT/HCPCS: 99213; G2211